=== PATIENT | female | born 1955 | race African-American/Black ===

== ENCOUNTER 2017-06-24 12:22 | Emergency (ER) | payer BC ==
[~2017-06-24] VITALS: Ht 170.2 cm; Wt 100.0 kg
[2017-06-24] MEDS ORDERED: PROT40 PO (12:27)
[2017-06-24 13:52] LABS: BG BASE EXCESS -0.5 mmol/L (-2.0-2.0); BG CARBOXYHEMOGLOBIN 0.7 % (0.5-1.5); BG DEOXYHEMOGLOBIN 1.9 % (0.0-5.0); BG FRACTION INSPIRED OXYGEN 21; BG METHEMOGLOBIN 0.4 % (0.0-1.5); BG OXYGEN SATURATION 98.1 % (92.0-98.5); BG PCO2 30.4 mmHg (35.0-45.0); BG PH 7.478 (7.350-7.450); BG PO2 103.6 mmHg (75.0-100.0); BG SAMPLE SITE LEFT RADIAL; BG VENT MODE ROOM AIR
[2017-06-24 14:16] LABS: EOSINOPHILS % 0.4 % (0.0-5.0); HEMATOCRIT. 40.2 % (36.0-48.0); HEMOGLOBIN. 13.5 g/dL (12.0-16.0); LYMPHOCYTES % 22.6 % (20.0-50.0); MEAN CORPUSCULAR HEMOGLOBIN 29.1 pg (28.0-32.0); MEAN CORPUSCULAR VOLUME 86.7 fL (81.0-99.0); MEAN PLATELET VOLUME 8.1 fl (7.4-10.4); MONOCYTES % 6.5 % (2.0-8.0); NEUTROPHILS % 69.5 % (40.0-76.0); PLATELET 296 x1000/uL (130-400); RED BLOOD CELL COUNT 4.64 mill/uL (4.2-5.4); RED CELL DISTRIBUTION WIDTH 13.4 % (11.6-14.6)
[2017-06-24 14:19] LABS: CHLORIDE 107 mEq/L (98-107)
[2017-06-24 14:24] LABS: TROPONIN I < 0.02 ng/mL (0.00-0.04)
[2017-06-24 16:16] VITALS: BP 150/78
== END 2017-06-24 16:15 | disposition home or self-care (01) ==
LOC: ER 12:35
DX: T59.811A Toxic effect of smoke, accidental (unintentional), initial encounter (principal); J70.5 Respiratory conditions due to smoke inhalation; K21.9 Gastro-esophageal reflux disease without esophagitis; Y93.G2 Activity, grilling and smoking food
CPT/HCPCS: 36415; 36600; 71045; 80053; 82375; 82805; 83880; 84484; 85025; 93005; 99285; Z7610